=== PATIENT | female | born 1970 | race Caucasian/White ===

== ENCOUNTER 2017-04-29 12:05 | Inpatient (IN) | payer MEDICAID ==
[~2017-04-29] VITALS: Ht 162.6 cm; Wt 90.3 kg
[2017-04-29] MEDS ORDERED: BUSP15 PO (12:40)
[2017-04-29] MEDS ORDERED: GABA400C PO (12:40)
[2017-04-29] MEDS ORDERED: CITA20TA17 PO (12:40)
[2017-04-29] MEDS ORDERED: TRAZ150T85 PO (12:40)
[2017-04-29 12:42] LABS: BASOPHILS % (AUTO) 0.6 % (0.0-2.0); EOSINOPHILS % (AUTO) 1.4 % (1.0-6.0); HEMATOCRIT 35.3 % (36-46); HEMOGLOBIN 11.8 g/dL (12.0-16.0); LYMPHOCYTES # (AUTO) 1.3 K/uL (1.0-4.8); LYMPHOCYTES % (AUTO) 18.1 % (22.0-44.0); MEAN CORPUSCULAR HEMOGLOBIN 28.6 pg (26.0-34.0); MEAN CORPUSCULAR HGB CONC 33.4 G/dL (31.0-37.0); MEAN CORPUSCULAR VOLUME 86 fL (80-100); MONOCYTES # (AUTO) 0.4 K/uL (0.1-1.0); MONOCYTES % (AUTO) 5.2 % (2.0-9.0); NEUTROPHILS # (AUTO) 5.2 K/uL (1.8-7.7); NEUTROPHILS % (AUTO) 74.7 % (40.0-70.0); PLATELET COUNT (AUTO) 352 K/uL (150-450); RED BLOOD CELL COUNT(AUTO) 4.12 MIL/uL (4.00-5.20); RED CELL DISTRIBUTION WIDTH 15.1 % (11.5-14.5); WHITE BLOOD COUNT (AUTO) 6.9 K/uL (4.5-11.0)
[2017-04-29 12:54] LABS: ANION GAP 8 mmol/L (8-16); CARBON DIOXIDE 27 mmol/L (22-29); CHLORIDE 102 mmol/L (98-107); CREATININE 0.95 mg/dL (0.60-1.30); GLOMERULAR FILTR. RATE CALC > 60 mL/min (>60); POTASSIUM 3.8 mmol/L (3.5-5.1); SODIUM SERUM 137 mmol/L (136-145); UREA NITROGEN, BLOOD 21 mg/dL (7-18)
[2017-04-29 13:01] LABS: ALANINE AMINOTRANSFERASE 75 U/L (12-78); ALBUMIN 3.8 g/dL (3.4-5.0); ASPARTATE AMINOTRANSFERASE 34 U/L (15-37); BILIRUBIN,TOTAL 0.3 mg/dL (0.1-1.0); TOTAL PROTEIN, SERUM 7.7 g/dL (6.4-8.2)
[2017-04-29] MEDS ORDERED: BUSP5TAB20 PO (13:49)
[2017-04-29] MEDS ORDERED: TRAZ-144 PO (13:49)
[2017-04-29] MEDS ORDERED: LORazepam 2 MG TABLET PO ONE (14:00)
[2017-04-29 16:10] VITALS: BP 119/70
[2017-04-29] MEDS: HALOPERIDOL 5 MG TABLET PO PRN (18:55)
[2017-04-29] MEDS: LORazepam 2 MG TABLET PO PRN (18:55)
[2017-04-29] MEDS ORDERED: PNEUMOCOCCAL VACCINE POLYVALENT 0.5 ML VIAL [PPSV23] IM ONE (19:00)
[2017-04-29] MEDS: ZOLPIDEM TARTRATE 10 MG TABLET PO PRN (20:35)
[2017-04-30 00:49] VITALS: BP 110/63
[2017-04-30 08:42] VITALS: BP 112/71
[2017-04-30] MEDS: NICOTINE 14 MG/24 HOUR PATCH TD SCH (09:01)
[2017-04-30 09:39] LABS: CHOL/HDL RATIO 2.8 (3.9-5.7)
[2017-04-30] MEDS: LORazepam 2 MG TABLET PO PRN ×2 (10:31→16:45)
[2017-04-30 16:02] VITALS: BP 116/69
[2017-04-30] MEDS: BusPIRone HCL 5 MG TABLET PO SCH (16:45)
[2017-04-30] MEDS: TraZODone HCL 50 MG TABLET PO SCH (21:06)
[2017-04-30] MEDS: ZOLPIDEM TARTRATE 10 MG TABLET PO PRN (21:06)
[2017-04-30] MEDS: HALOPERIDOL 5 MG TABLET PO PRN (21:06)
[2017-04-30] MEDS ORDERED: ACETAMINOPHEN 325 MG TABLET PO PRN (22:00)
[2017-04-30] MEDS ORDERED: IBUPROFEN 400 MG TABLET PO PRN (22:00)
[2017-05-01 05:30] VITALS: BP 102/62
[2017-05-01 08:20] LABS: HEMOGLOBIN A1C 5.7 % (4.5-6.2)
[2017-05-01] MEDS: CITALOPRAM HYDROBROMIDE 20 MG TABLET PO SCH (08:35)
[2017-05-01] MEDS: BusPIRone HCL 5 MG TABLET PO SCH ×2 (08:35→16:10)
[2017-05-01] MEDS: NICOTINE 14 MG/24 HOUR PATCH TD SCH (08:35)
[2017-05-01 08:37] LABS: CHOL/HDL RATIO 2.8 (3.9-5.7); THYROID STIMULATING HORMONE 1.9 uIU/mL (0.36-3.74)
[2017-05-01 08:55] VITALS: BP 107/66
[2017-05-01] MEDS: LORazepam 2 MG TABLET PO PRN ×3 (11:31→21:36)
[2017-05-01 16:18] VITALS: BP 123/71
[2017-05-01] MEDS: TraZODone HCL 50 MG TABLET PO SCH (21:04)
[2017-05-01] MEDS: HALOPERIDOL 5 MG TABLET PO PRN (21:36)
[2017-05-02 00:13] VITALS: BP 111/70
[2017-05-02 08:03] VITALS: BP 119/67
[2017-05-02] MEDS: BusPIRone HCL 5 MG TABLET PO SCH ×2 (09:10→16:01)
[2017-05-02] MEDS: CITALOPRAM HYDROBROMIDE 20 MG TABLET PO SCH (09:10)
[2017-05-02] MEDS: NICOTINE 14 MG/24 HOUR PATCH TD SCH (09:11)
[2017-05-02] MEDS: LORazepam 2 MG TABLET PO PRN ×3 (11:31→21:34)
[2017-05-02 16:18] VITALS: BP 120/75
[2017-05-02] MEDS: HALOPERIDOL 5 MG TABLET PO PRN (20:05)
[2017-05-02] MEDS: TraZODone HCL 50 MG TABLET PO SCH (20:05)
[2017-05-02] MEDS: ZOLPIDEM TARTRATE 10 MG TABLET PO PRN (22:36)
[2017-05-03 00:14] VITALS: BP 112/69
[2017-05-03] MEDS: CITALOPRAM HYDROBROMIDE 20 MG TABLET PO SCH (08:55)
[2017-05-03] MEDS: BusPIRone HCL 5 MG TABLET PO SCH ×2 (08:55→16:38)
[2017-05-03] MEDS: NICOTINE 14 MG/24 HOUR PATCH TD SCH (08:55)
[2017-05-03 09:27] VITALS: BP 114/70
[2017-05-03] MEDS: LORazepam 2 MG TABLET PO PRN ×2 (11:29→17:42)
[2017-05-03 16:48] VITALS: BP 127/78
[2017-05-03] MEDS: TraZODone HCL 50 MG TABLET PO SCH (20:45)
[2017-05-03] MEDS: ZOLPIDEM TARTRATE 10 MG TABLET PO PRN (20:45)
[2017-05-03] MEDS: HALOPERIDOL 5 MG TABLET PO PRN (20:45)
[2017-05-04 01:08] VITALS: BP 101/62
[2017-05-04] MEDS: LORazepam 2 MG TABLET PO PRN (06:30)
[2017-05-04] MEDS: NICOTINE 14 MG/24 HOUR PATCH TD SCH (08:50)
[2017-05-04] MEDS: BusPIRone HCL 5 MG TABLET PO SCH (08:50)
[2017-05-04] MEDS: CITALOPRAM HYDROBROMIDE 20 MG TABLET PO SCH (08:50)
[2017-05-04 10:09] VITALS: BP 118/69
== END 2017-05-04 12:05 | disposition home or self-care (01) | DRG 751 ==
LOC: EMS 12:07 → B2S 15:06
DX: F33.2 Major depressive disorder, recurrent severe without psychotic features (principal); R45.851 Suicidal ideations; I10 Essential (primary) hypertension; F15.90 Other stimulant use, unspecified, uncomplicated; L80 Vitiligo; Z88.0 Allergy status to penicillin; D64.9 Anemia, unspecified; F19.10 Other psychoactive substance abuse, uncomplicated; Z23 Encounter for immunization
CPT/HCPCS: 83036; 84443; 87081; 90471; 99285; G0480

== ENCOUNTER 2017-06-10 22:07 | Emergency (ER) | payer MEDICAID ==
[~2017-06-10] VITALS: Ht 162.6 cm; Wt 86.4 kg
[~2017-06-10 22:07] MED LIST: BUSP5TAB20 PO; CITA20TA17 PO; TRAZ-144 PO
[2017-06-10] MEDS ORDERED: GABA-531 PO (22:29)
[2017-06-10] MEDS ORDERED: TRAZ-147 PO (22:29)
[2017-06-10] MEDS ORDERED: BUPR-47 PO (22:29)
[2017-06-10 22:55] LABS: BASOPHILS % (AUTO) 0.8 % (0.0-2.0); EOSINOPHILS % (AUTO) 0.9 % (1.0-6.0); HEMATOCRIT 33.9 % (36-46); HEMOGLOBIN 11.5 g/dL (12.0-16.0); LYMPHOCYTES # (AUTO) 1.5 K/uL (1.0-4.8); LYMPHOCYTES % (AUTO) 20.7 % (22.0-44.0); MEAN CORPUSCULAR HEMOGLOBIN 28.6 pg (26.0-34.0); MEAN CORPUSCULAR HGB CONC 33.9 G/dL (31.0-37.0); MEAN CORPUSCULAR VOLUME 84 fL (80-100); MONOCYTES # (AUTO) 0.4 K/uL (0.1-1.0); MONOCYTES % (AUTO) 6.2 % (2.0-9.0); NEUTROPHILS # (AUTO) 5.1 K/uL (1.8-7.7); NEUTROPHILS % (AUTO) 71.4 % (40.0-70.0); PLATELET COUNT (AUTO) 284 K/uL (150-450); RED BLOOD CELL COUNT(AUTO) 4.02 MIL/uL (4.00-5.20); RED CELL DISTRIBUTION WIDTH 14.5 % (11.5-14.5); WHITE BLOOD COUNT (AUTO) 7.2 K/uL (4.5-11.0)
[2017-06-10 23:00] LABS: ANION GAP 9 mmol/L (8-16); CALCIUM, TOTAL 9.8 mg/dL (8.8-10.5); CARBON DIOXIDE 30 mmol/L (22-29); CHLORIDE 100 mmol/L (98-107); CREATININE 0.97 mg/dL (0.60-1.30); GLOMERULAR FILTR. RATE CALC > 60 mL/min (>60); SODIUM SERUM 139 mmol/L (136-145); UREA NITROGEN, BLOOD 21 mg/dL (7-18)
[2017-06-10 23:06] LABS: ALANINE AMINOTRANSFERASE 384 U/L (12-78); ALBUMIN 3.9 g/dL (3.4-5.0); ASPARTATE AMINOTRANSFERASE 302 U/L (15-37); BILIRUBIN,TOTAL 0.3 mg/dL (0.1-1.0); TOTAL PROTEIN, SERUM 7.8 g/dL (6.4-8.2)
[2017-06-11] MEDS ORDERED: LORazepam 2 MG TABLET PO ONE
[2017-06-11 04:07] VITALS: BP 133/64
[2017-06-11] MEDS ORDERED: HYD25 PO (08:09)
[2017-06-12 10:11] LABS: HEPATITIS Bs ANTIGEN SCREEN P Negative (Negative); HEPATITIS C AB SCREEN >11.0 s/co ratio (0.0-0.9)
== END 2017-06-11 05:03 | disposition home or self-care (01) ==
LOC: EMS 22:08 → EEVIPCON 22:08 → EMS 06-11 05:03
DX: F32.9 Major depressive disorder, single episode, unspecified (principal); R45.851 Suicidal ideations; R79.89 Other specified abnormal findings of blood chemistry; I10 Essential (primary) hypertension; F17.210 Nicotine dependence, cigarettes, uncomplicated; Z88.0 Allergy status to penicillin
CPT/HCPCS: 36415; 80053; 80074; 80307; 83690; 84703; 85025; 99285; 99406; G0480

== ENCOUNTER 2018-05-05 16:27 | Emergency (ER) | payer MEDICAID ==
[~2018-05-05] VITALS: Ht 165.1 cm; Wt 64.5 kg
[~2018-05-05 16:27] MED LIST changes: +GABA-531 PO; -TRAZ-144 PO; +TRAZ-147 PO
[2018-05-05] MEDS ORDERED: BUPR100SR PO (16:40)
[2018-05-05] MEDS ORDERED: LISI-660 PO (16:40)
[2018-05-05 21:15] VITALS: BP 140/96
== END 2018-05-05 21:30 | disposition home or self-care (01) ==
LOC: EMS 16:28
DX: N76.4 Abscess of vulva (principal); I10 Essential (primary) hypertension; F17.210 Nicotine dependence, cigarettes, uncomplicated; F32.9 Major depressive disorder, single episode, unspecified; F41.9 Anxiety disorder, unspecified; Z79.899 Other long term (current) drug therapy
CPT/HCPCS: 99283